=== PATIENT | male | born 1995 | race Caucasian/White ===

== ENCOUNTER 2017-04-21 14:22 | Emergency (ER) | payer OTHER ==
[~2017-04-21] VITALS: Ht 180.3 cm; Wt 68.0 kg
[2017-04-21] MEDS ORDERED: Omeprazole20 M1 PO (14:35)
[2017-04-21] MEDS ORDERED: IBUP600 PO (15:11)
== END 2017-04-21 15:30 | disposition home or self-care (01) ==
LOC: ER 14:22
DX: S93.402A Sprain of unspecified ligament of left ankle, initial encounter (principal); X50.9XXA Other and unspecified overexertion or strenuous movements or postures, initial encounter; Z79.899 Other long term (current) drug therapy
CPT/HCPCS: 29515; 73610; 99283